=== PATIENT | female | born 1995 | race Caucasian/White ===

== ENCOUNTER 2019-09-09 04:43 | Emergency (ER) | payer OTHER ==
[~2019-09-09] VITALS: Ht 167.6 cm; Wt 59.0 kg
[2019-09-09 04:50] VITALS: BP 109/58
--- NOTE | 2019-09-09 04:50 | NUR ---
TO BED # 02 AMBULATORY
--- NOTE | 2019-09-09 05:10 | NUR ---
COMMUNICATION MADE VIA PATIENTS CELL PHONE SHOWING HER TEXTS
--- NOTE | 2019-09-09 05:10 | NUR ---
24 YEAR OLD FEMALE COMPLAINS OF SWELLING IN HER THROAT X 4 DAYS. PATIENT STATES SHE HAS BEEN UNABLE TO EAT, DRINK, AND SPEAK FOR 2 DAYS BECAUSE THE SWELLING HURTS TOO MUCH WHEN SHE ATTEMPTS TO SWALLOW. PT DENIES SOB. PATIENT STATES SHE ALSO HAS HEADACHE, EAR, AND JAW PAIN. PATIENT STATES SHE HAS A PRESCRIPTION OF NAPROXEN, AMOXICILLIN SINCE TUESDAY BUT HAS NOT BEEN HELPING. PATIENT AOX4, BREATHING EVEN AND UNLABORED, SKIN WARM AND DRY. BED IN LOWEST POSITION, LOCKED, BED RAIL UPX1. ERMD MADE AWARE OF PT STATUS. PMH - DENIES ALLERGIES - NKA
[2019-09-09] MEDS ORDERED: DEXAMETHASONE 10 MG/ML VIAL IM ONE (06:10)
[2019-09-09] MEDS ORDERED: methylPREDNISolone SS 125 MG in WATER STERILE 2 ML IM ONE (06:10)
[2019-09-09] MEDS ORDERED: cefTRIAXone 1,000 MG in LIDOCAINE MPF 1% 2.1 ML IM ONE (06:10)
[2019-09-09] MEDS ORDERED: LIDOCAINE MPF 1% 5 ML ONE ×2 (06:22→06:41)
[2019-09-09] MEDS ORDERED: WATER STERILE 10 ML MC ONE (06:23)
[2019-09-09] MEDS ORDERED: methylPREDNISolone SS 125 MG/2 ML VIAL ONE (06:24)
[2019-09-09] MEDS ORDERED: cefTRIAXone 1,000 MG VIAL ONE (06:41)
--- NOTE | 2019-09-09 07:23 | NUR ---
REPORT GIVEN TO KRISTY PALOMINO, TRANSFER OF CARE AT THIS TIME
--- NOTE | 2019-09-09 07:44 | NUR ---
DR. SANTANA WENT TO BEDSIDE AND REASSESSED PT THEN D/C'D PT HOME. Patient discharged with v/s stable. Written and verbal after care instructions given and explained. Patient alert, oriented and verbalized understanding of instructions. Ambulatory with steady gait. All questions addressed prior to discharge. ID band removed. Patient advised to follow up with PMD. Rx of AUMENTIN AND MEDROL given. Patient educated on indication of medication including possible reaction and side effects. Opportunity to ask questions provided and answered.
[2019-09-09 07:46] VITALS: BP 121/75
== END 2019-09-09 07:44 | disposition home or self-care (01) ==
LOC: MED 04:43
DX: J02.9 Acute pharyngitis, unspecified (principal)
CPT/HCPCS: 96372; 99284; J0696; J1100; J2001; J2930